=== PATIENT | male | born 1995 | race Caucasian/White ===

== ENCOUNTER 2017-04-12 12:33 | Emergency (ER) | payer OTHER ==
[~2017-04-12] VITALS: Ht 182.9 cm; Wt 91.0 kg
[~2017-04-12 12:33] MED LIST: IBUP-1277 PO
[2017-04-12 12:36] VITALS: Ht 182.9 cm; Wt 91.0 kg
[2017-04-12] MEDS ORDERED: ONDANSETRON INJ 2 MG/ML 2 ML VIAL IV STA (12:49)
[2017-04-12] MEDS ORDERED: SODIUM CHLORIDE 0.9% 1000ML 1,000 ML IV STA ×2 (12:49→14:07)
[2017-04-12] MEDS ORDERED: MULT-506 PO (12:52)
[2017-04-12] MEDS ORDERED: IBUPROFEN 800 MG TAB PO STA (12:52)
[2017-04-12] MEDS ORDERED: AMOXICILLIN 250 MG CAP PO STA (13:10)
[2017-04-12] MEDS ORDERED: DEXAMETHASONE SOD INJ 10 MG/ML VIAL IV ONE (13:15)
[2017-04-12 13:36] LABS: BUN/CREATININE RATIO 10.3 (10-20); CALCIUM 9.8 mg/dl (8.5-10.1); CREATININE 1.1 mg/dl (0.60-1.40); POTASSIUM 3.6 mmol/L (3.5-5.1)
[2017-04-12 13:49] LABS: BASO % 0.1 %; BASO ABS # 0.02 K/uL (0-0.2); COMPLETE YES; EOS % 0.1 %; HEMATOCRIT 49.7 % (42-52); IG% 0.2 %; LYMPH % 7.6 %; LYMPH ABS # 1.15 K/uL (1.2-3.4); MEAN CELL VOLUME 84.7 fL (80-100); MEAN CORPUSCULAR HEMOGLOBIN 29.6 pg (25-34); MEAN PLATELET VOLUME 8.6 fL (7.4-10.4); MONO % 5.7 %; NEUT % 86.3 %; PLATELET COUNT 206 K/uL (130-400); RED BLOOD COUNT 5.87 M/uL (4.7-6.1)
[2017-04-12] MEDS ORDERED: AZIT500T PO (14:10)
[2017-04-12] MEDS ORDERED: METH4PAK PO (14:10)
[2017-04-12] MEDS ORDERED: ACETAMINOPHEN 500 MG TAB PO STA (14:34)
[2017-04-12 15:46] VITALS: BP 115/65; PULSE 108; TEMP 36.9; O2SAT 96
--- NOTE | 2017-04-12 15:55 | EMERGENCY ROOM VISIT NOTE ---
History First contact with patient: 12:39 Chief Complaint: ILLNESS Stated Complaint: COLD, THROAT, WEAK, TEMPERATURE History of Present Illness The patient is a 21 year old male who presents to the Emergency Room with complaints of fever or chills and sore throat which started yesterday. He also admits to feeling nauseated and vomited twice yesterday. The patient denies any abdominal pain or any change in bowel habits. The patient denies any urinary symptoms. The patient does admit to a frontal headache and sore throat but denies any ear pain, chest pain. He does admit to mild productive cough. The patient denies any rash. The patient states that a friend had similar symptoms 3 days ago. The patient took Tylenol for his symptoms prior to arrival. The patient denies having mono in the past. Review of Systems 10 system review was performed and was negative unless stated otherwise history of present illness. Past Medical/Surgical History Medical Problems: (1) No pertinent past medical history Family History No pertinent family history Social History Smoking Status: Never Smoker Housing Status: lives with roommate Occupation Status: [employer] student Current/Historical Medications Scheduled Azithromycin (Zithromax), 500 MG PO DAILY Methylprednisolone (Medrol Dosepak), 0 PO DAILY Multivitamin (Multivitamin), 1 TAB PO DAILY Allergies Coded Allergies: No Known Allergies (Unverified , 04/12/17) Physical Exam Vital Signs Date Time Temp Pulse Resp B/P (MAP) Pulse Ox O2 Delivery O2 Flow Rate FiO2 04/12/17 15:46 36.9 108 20 115/65 96 Room Air 04/12/17 15:00 114/64 04/12/17 14:33 113 35 04/12/17 14:14 38.2 118 20 110/69 98 04/12/17 14:12 110/69 04/12/17 13:36 132/93 04/12/17 13:33 117 24 04/12/17 12:52 132/93 04/12/17 12:50 38.6 123 20 132/93 98 Room Air 04/12/17 12:50 136 04/12/17 12:36 36.3 136 16 108/59 97 Physical Exam PHYSICAL EXAM: Vital Signs were reviewed: Temperature was 38 6 on repeat, blood pressure 108/59, pulse 136, respiratory rate 16 Reviewed Nurse's notes and agree. Oxygen saturation is 97% on room air which is normal . GENERAL: 21- year-old male appears in no acute distress. MENTAL STATUS: Alert, oriented, coherent. EARS: Canals clear. TMs good light reflex, no erythema or fluid level noted. NOSE: Nasal mucosa with moderate erythema engorgement. PHARYNX: Moderate erythema, moderate edema noted. No exudate noted. Airway is adequate. NECK: Supple, non-tender. Bilateral anterior cervical lymphadenopathy noted. No posterior nodes noted. LUNGS: Clear to auscultation without wheezes rales or rhonchi. CARDIAC: Tachycardic with Regular rhythm without murmur. ABDOMEN: Positive bowel sounds all 4 quadrants. Soft, nontender to palpation without a family or masses. SKIN: No rashes noted. Medical Decision & Procedures Laboratory Results 04/12/17 13:05 Red Blood Count 5.87, Mean Corpuscular Volume 84.7, Mean Corpuscular Hemoglobin 29.6, Mean Corpuscular Hemoglobin Concent 35.0, Mean Platelet Volume 8.6, Neutrophils (%) (Auto) 86.3, Lymphocytes (%) (Auto) 7.6, Monocytes (%) (Auto) 5.7, Eosinophils (%) (Auto) 0.1, Basophils (%) (Auto) 0.1, Neutrophils # (Auto) 13.03, Lymphocytes # (Auto) 1.15, Monocytes # (Auto) 0.86, Eosinophils # (Auto) 0.01, Basophils # (Auto) 0.02 04/12/17 13:05 Test 04/12/17 13:05 White Blood Count 15.10 K/uL (4.8-10.8) Red Blood Count 5.87 M/uL (4.7-6.1) Hemoglobin 17.4 g/dL (14.0-18.0) Hematocrit 49.7 % (42-52) Mean Corpuscular Volume 84.7 fL (80-100) Mean Corpuscular Hemoglobin 29.6 pg (25-34) Mean Corpuscular Hemoglobin Concent 35.0 g/dl (32-36) Platelet Count 206 K/uL (130-400) Mean Platelet Volume 8.6 fL (7.4-10.4) Neutrophils (%) (Auto) 86.3 % Lymphocytes (%) (Auto) 7.6 % Monocytes (%) (Auto) 5.7 % Eosinophils (%) (Auto) 0.1 % Basophils (%) (Auto) 0.1 % Neutrophils # (Auto) 13.03 K/uL (1.4-6.5) Lymphocytes # (Auto) 1.15 K/uL (1.2-3.4) Monocytes # (Auto) 0.86 K/uL (0.11-0.59) Eosinophils # (Auto) 0.01 K/uL (0-0.5) Basophils # (Auto) 0.02 K/uL (0-0.2) RDW Standard Deviation 39.5 fL (36.4-46.3) RDW Coefficient of Variation 12.8 % (11.5-14.5) Immature Granulocyte % (Auto) 0.2 % Immature Granulocyte # (Auto) 0.03 K/uL (0.00-0.02) Nucleated RBC Absolute Count (auto) 0.00 K/uL (0-0) Nucleated Red Blood Cells % 0.0 % Anion Gap 8.0 mmol/L (3-11) Est Creatinine Clear Calc Drug Dose 116.6 ml/min Estimated GFR () 110.6 Estimated GFR (Non- 95.5 BUN/Creatinine Ratio 10.3 (10-20) Calcium Level 9.8 mg/dl (8.5-10.1) Total Bilirubin 1.0 mg/dl (0.2-1) Direct Bilirubin 0.2 mg/dl (0-0.2) Aspartate Amino Transf (AST/SGOT) 15 U/L (15-37) Alanine Aminotransferase (ALT/SGPT) 26 U/L (12-78) Alkaline Phosphatase 87 U/L (45-117) Total Protein 8.4 gm/dl (6.4-8.2) Albumin 4.3 gm/dl (3.4-5.0) Lipase 154 U/L (73-393) Monoscreen POS (NEG) Date/Time Source Procedure Growth Status 04/12/17 13:00 Throat Group A Streptococcus Screen - Final SPECIMEN POSITIVE FOR GROUP A BETA ST... Complete 04/12/17 13:00 Throat Group A Streptococcus Screen (EDIL) - Final Complete Medications Administered Medications (Trade) Dose Ordered Sig/Justen Route Start Time Stop Time Status Last Admin Dose Admin Sodium Chloride 1,000 ml @ 999 mls/hr Q1H1M STAT IV 04/12/17 12:49 04/12/17 13:49 DC 04/12/17 12:49 999 MLS/HR Ondansetron HCl (Zofran Inj) 4 mg NOW STAT IV 04/12/17 12:49 04/12/17 12:51 DC 04/12/17 13:11 4 MG Ibuprofen (Motrin Tab) 800 mg NOW STAT PO 04/12/17 12:52 04/12/17 12:53 DC 04/12/17 13:11 800 MG Dexamethasone Sodium Phosphate (Decadron Inj) 10 mg NOW ONCE IV 04/12/17 13:15 04/12/17 13:16 DC 04/12/17 13:12 10 MG Amoxicillin (Amoxil Cap) 500 mg NOW STAT PO 04/12/17 13:10 04/12/17 13:11 DC 04/12/17 13:18 500 MG Sodium Chloride 1,000 ml @ 999 mls/hr Q1H1M STAT IV 04/12/17 14:07 04/12/17 15:07 DC 04/12/17 15:00 999 MLS/HR Acetaminophen (Tylenol Tab) 1,000 mg NOW STAT PO 04/12/17 14:34 04/12/17 14:36 DC 04/12/17 14:59 1,000 MG ED Course The patient was evaluated. The patient was placed on a monitor. IV access was obtained. The patient was given 1 L normal saline wide-open. The patient was given Decadron 10 mg IV, Zofran 4 mg IV and ibuprofen 800 mg by mouth. CBC differential, renal profile, LFTs and lipase levels were ordered. Monospot was ordered. Rapid strep was positive. The patient was given amoxicillin 500 mg by mouth. The patient's monitor was positive therefore I instructed patient to watch for a rash since I gave him the amoxicillin. He will be treated with Zithromax for the strep throat. The patient was reevaluated and was still tachycardic and therefore was given additional 1 L of saline wide-open. His labs are reviewed. The patient's white count was elevated, renal profile complete metabolic profile was unremarkable. The patient's temperature was still elevated and therefore was given Tylenol 1 g by mouth. The patient was once again reevaluated. His temperature came down to 36.9 and his pulse to 108. The patient was informed of all findings and discharged home in stable condition. Medical Decision Differential diagnosis include strep pharyngitis, mononucleosis, viral URI, dehydration Impression Primary Impression: Strep pharyngitis Additional Impression: Mononucleosis Departure Information Dispostion Home / Self-Care Condition GOOD Prescriptions Methylprednisolone (MEDROL DOSEPAK) 4 Mg Juan Diego 0 PO DAILY, #1 PKT Prov: Arlyn Jaimes PA-C 04/12/17 Azithromycin (ZITHROMAX) 500 Mg Tab 500 MG PO DAILY for 5 Days, #5 TABS Prov: Arlyn Jaimes PA-C 04/12/17 Referrals No Doctor, Assigned (PCP) Forms HOME CARE DOCUMENTATION FORM, IMPORTANT VISIT INFORMATION, WORK / SCHOOL INSTRUCTIONS Patient Instructions ED Mononucleosis, [facility], Sore Throat - [facility] Additional Instructions Follow sore throat handouts instructions. Tylenol and/or ibuprofen as needed for fever. Take Zithromax as prescribed. Start Medrol Dosepak tomorrow. Avoid any physical contact until reevaluated by [facility] next week. If your symptoms worsen in the interim, return to ER. Problem Qualifiers
== END 2017-04-12 16:09 | disposition home or self-care (01) ==
LOC: C.EDB 12:34 → C.EDC 16:09
DX: J02.0 Streptococcal pharyngitis (principal); B27.90 Infectious mononucleosis, unspecified without complication; Z79.899 Other long term (current) drug therapy